=== PATIENT | male | born 1955 | race Caucasian/White ===

== ENCOUNTER 2016-06-19 18:09 | Emergency (ER) | payer BC, MEDICARE ==
--- NOTE | ~2016-06-19 | CT4 ---
[facility] A Service of [facility] & [facility] RADIOLOGY TEXT RESULTS PATIENT: KELI LUNDBERG LOCATION: [facility] : 56 UNIT #: [id number] AGE: [address]: Vanessa Foote MD SEX: M ORDER DR: [id number] [facility] [address] [place], [place] [address] [id number] E MR#: [id number] Acc #: [id number] NAME: KELI LUNDBERG : 1955 SEX: M STUDY DATE/TIME: 06/19/2016 18:48 UNIT: ELIO ROOM: STUDY DESCRIPTION: CT Abd and Pelv Wo Cont Attending Physician: Vanessa Foote M.D. Ordering Physician: Vanessa Foote M.D. Primary Care Physician: Janice Carpio M.D. MEDICAL IMAGING REPORT This report is preliminary unless electronic signature is present EXAM CT of abdomen and pelvis without IV contrast. DATE OF EXAM 06/19/2016 COMPARISON January 28, 2015, as well as CT chest dated January 28, 2015, and February 11, 2013. 2 views of the right femur on June 19, 2016, and 2 views of the right hip dated July 25, 2015. INDICATIONS 61-year-old male with right-sided hip and pelvic pain after falling in the shower today. History of right total hip arthroplasty. TECHNIQUE NOTE: This CT exam was performed with one or more of the following radiation dose reduction techniques: automatic exposure control, adjustment of mA and/or kV according to patient size, and iterative reconstruction. FINDINGS Axial CT imaging of the abdomen and pelvis was performed without IV contrast. Lack of IV contrast limits evaluation of adenopathy, vasculature and viscera. There is interlocking femoral nail and screw in the proximal left femur. The femoral nail is incompletely imaged. No hardware complication is seen on this exam. There is a right total hip arthroplasty. The superior right acetabular screw protrudes into the right pelvis by approximately 9 mm. Detailed evaluation of the bone adjacent to the right total arthroplasty is limited by streak artifact from the implant itself. 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 The right hip arthroplasty appears STS. [facility] A Service of [facility] & [facility] RADIOLOGY TEXT RESULTS PATIENT: KELI LUNDBERG [id number] 57 UNIT #: [id number] AGE: [address]: Vanessa Foote MD SEX: M ORDER DR: garth. There appears to be at least 1 stable defect in inferior aspect of the right acetabulum and the acetabular bone is very thin, not significantly changed from comparison of February 2016. No convincing evidence of an acute fracture. No evidence of dislocation of either hip. There is diffuse osteopenia. There is stable Schmorl node formation at L3 and L4 superiorly. There is posterior disc protrusion noted at L4-L5, which is small. No acute fracture or suspicious osseous lesion. As compared to CT chest of January 28, 2015, there are incompletely imaged apparently new nodular densities in the lateral basilar segment of the right lower lobe. Some of these are incompletely imaged and the largest measures up to 7 mm. These may be infectious or inflammatory. The patient does have emphysema. There are minimal subpleural opacities in the dependent left lower lobe which appear new from comparison study, possibly representing focal subsegmental atelectasis. One of these is somewhat nodular in appearance and cannot be excluded as possibly reflecting a new nodule measuring up to 6 mm. Separate posterior basilar segment left lower lobe somewhat nodular appearing opacity measuring up to 7 mm, also new or increased from comparison of January 2015. Unenhanced liver is unremarkable. There has been prior cholecystectomy. No acute abnormality of the pancreas, spleen or adrenal glands are seen on this noncontrast exam. Kidneys appear within normal limits. No evidence of hydronephrosis or hydroureter. No evidence of renal or ureteral calculus. Pelvis is not well evaluated due to streak artifact from the patient's metallic hip hardware. Urinary bladder appears to be distended. Prostate gland is not well evaluated. No convincing evidence of bowel obstruction. There is a moderate diffuse colonic stool burden. Similarly, the appendix is not well seen given streak artifact in the pelvis. There is suture material in the right inguinal region consistent with prior inguinal hernia repair. No pneumoperitoneum. No convincing evidence of free fluid, although, again evaluation of the pelvis is limited. There is diffuse calcification of the abdominal aorta extending into the iliac arteries. No convincing evidence of adenopathy. IMPRESSION 1. The right total hip arthroplasty is incompletely imaged. The femoral stem is partly excluded from field of view. Otherwise, CT appearance of the right total hip arthroplasty is stable from January 2015. There is acetabular protrusio on the right and there is marked thinning of the bone of the acetabulum on the right which is unchanged from comparison. If no recent orthopedic consultation is performed consider doing so as an outpatient. There is stable questionable small defect in the inferior wall of the right acetabulum of uncertain clinical significance. It is uncertain if this may put the patient at risk for hardware failure. No current evidence of acute hardware failure is seen. 2. Stable protrusion of 1 of the acetabular screws into the right pelvis of approximately 9 mm distance. [facility] A Service of [facility] RADIOLOGY TEXT RESULTS PATIENT: KELI LUNDBERG LOCATION: [facility] : 57 UNIT #: [id number] AGE: [address]: Vanessa Foote MD SEX: M ORDER DR: 3. New nodular opacities in both lung bases, largest of which measures up to 7 mm as compared to January 2015. The patient does have emphysema. These are probably infectious or inflammatory but noncontrast CT chest followup in 3 months is recommended to document stability or resolution. 4. Degenerative changes of the lumbar spine. 5. Prior cholecystectomy. Diffuse calcification of the abdominal aorta. 6. Please note the pelvis is not well evaluated due to streak artifact from the patient's bilateral hip hardware. The appendix is not definitely seen and may be obscured by bowel loops and/or the streak artifact in the pelvis. Dictated by... Ayo Krishnamurthy M.D. THIS IS AN ELECTRONICALLY VERIFIED REPORT Ayo Krishnamurthy M.D. at 06/24/2016 9:48 AM YOVANI/farzana TD: 06/19/2016 22:23 JOB #: [id number] MEDICAL IMAGING REPORT Page 1 of 1 COPY
--- NOTE | ~2016-06-19 | CR94 ---
[facility] A Service of [facility] & [facility] RADIOLOGY TEXT RESULTS PATIENT: KELI LUNDBERG LOCATION: [facility] : 57 UNIT #: [id number] AGE: [address]: Vanessa Foote MD SEX: M ORDER DR: [id number] [facility] [address] [place], [place] [address] [id number] E MR#: [id number] Acc #: [id number] NAME: KELI LUNDBERG : 1955 SEX: M STUDY DATE/TIME: 06/19/2016 18:25 UNIT: ELIO ROOM: STUDY DESCRIPTION: CR Elbow Min 3 Views Rt Attending Physician: Vanessa Foote M.D. Ordering Physician: Vanessa Foote M.D. Primary Care Physician: Janice Carpio M.D. MEDICAL IMAGING REPORT This report is preliminary unless electronic signature is present EXAM Right elbow HISTORY Elbow pain after falling today. TECHNIQUE 3 views the elbow were obtained. FINDINGS AP and lateral examination of the elbow shows satisfactory articulation of the humerus with the proximal radius and ulna. There is no identifiable fracture, dislocation, joint effusion, or radiopaque foreign body in the soft tissues. IMPRESSION Normal elbow. Dictated by... Monroe Gutierrez M.D. THIS IS AN ELECTRONICALLY VERIFIED REPORT Monroe Gutierrez M.D. at 06/20/2016 4:55 PM MEL/rao TD: 06/19/2016 21:28 JOB #: [id number] MEDICAL IMAGING REPORT Page 1 of 1 COPY
--- NOTE | ~2016-06-19 | CR107 ---
[facility] A Service of [facility] & [facility] RADIOLOGY TEXT RESULTS PATIENT: KELI LUNDBERG LOCATION: [facility] : 57 UNIT #: [id number] AGE: [address]: Vanessa Foote MD SEX: M ORDER DR: [id number] [facility] [address] [place], [place] [address] [id number] E MR#: [id number] Acc #: [id number] NAME: KELI LUNDBERG : 1955 SEX: M STUDY DATE/TIME: 06/19/2016 18:27 UNIT: [facility] ROOM: STUDY DESCRIPTION: CR Femur 2 Views Rt Attending Physician: Vanessa Foote M.D. Ordering Physician: Vanessa Foote M.D. Primary Care Physician: Janice Carpio M.D. MEDICAL IMAGING REPORT This report is preliminary unless electronic signature is present EXAM Right femur HISTORY Right-sided leg pain after falling today. TECHNIQUE 4 views of the femur were obtained. FINDINGS Postoperative changes of hip replacement are noted. There is no evidence of acute femoral fracture. No periosteal reactions or foreign bodies are seen. Generalized bony demineralization is noted. IMPRESSION No fracture seen. Dictated by... Monroe Gutierrez M.D. THIS IS AN ELECTRONICALLY VERIFIED REPORT Monroe Gutierrez M.D. at 06/20/2016 4:55 PM MEL/rao TD: 06/19/2016 21:31 JOB #: [id number] MEDICAL IMAGING REPORT Page 1 of 1 COPY
[~2016-06-19 18:09] MED LIST: ALBUTEROL17 GM INH; AMBIEN CR PO; AMBIEN PO; AMBIEN12.5 M1 PO; AMBIEN12.5 MG PO; ASCORBIC ACID500 M2 PO; AUGMENTIN875 MG PO; AVINZA PO; AVINZA30 MG PO; AVINZA60 MG PO; BACTRIM DS TABL1 TAB PO; CERTAGEN PO; CITRACAL + D CA1 TA1 PO; CLONIDINE PO; DESYREL50 MG PO; DIAZEPAM PO; DUONEB 2.5-0.5 M3 ML NEB; DURAGESIC TOP; EFFEXOR-XR150 MG PO; EFFEXOR75 M1 PO; EFFEXOR75 M3 PO; FISH OIL 1,0001 CAP PO; FLEXERIL PO; FORTEO2.4 ML SQ; IBUPROFEN600 MG PO; K-DUR20 ME1 PO; KEFLEX PO; LEVAQUIN750 M1 PO; LEVAQUIN750 MG PO; LISINOPRIL10 MG PO; LYRICA PO; LYRICA200 MG PO; MEDROL DOSE PAK; METHADONE PO; MUCINEX100 MG/BOX; NAPROSYN500 MG PO; NASACORT AQ16.5 GM; NONI; NORVASC PO; OLANZAPINE5 MG PO; OMNICEF; OXYCODONE15 M1 PO; PERCOCET 10/31 UDTA1 PO; PERCOCET 10/3251 TAB PO; PHENERGAN PO; PREDNISONE PO; PROLIA60 MG/1 ML; RECLAST 55 MG/100 M IV; ROBITUSSIN100 MG/51 PO; SEROQUEL50 M1 PO; SUDAFED PO; TRAMADOL HCL50 M1 PO; VALIUM10 MG PO; VICODIN PO; VITAMIN C PO; XANAX2 MG PO; Z-PAK; ZITHROMAX PO; ZYPREXA PO; ZYPREXA2.5 MG PO; [UNRECOGNIZED DRUG - OTHER]
== END 2016-06-19 20:10 | disposition home or self-care (01) ==
LOC: CED 18:09
DX: S70.01XA Contusion of right hip, initial encounter (principal); S50.01XA Contusion of right elbow, initial encounter; J44.9 Chronic obstructive pulmonary disease, unspecified; I10 Essential (primary) hypertension; Z90.49 Acquired absence of other specified parts of digestive tract; W01.0XXA Fall on same level from slipping, tripping and stumbling without subsequent striking against object, initial encounter; Y92.009 Unspecified place in unspecified non-institutional (private) residence as the place of occurrence of the external cause
CPT/HCPCS: 73080; 73552; 74176; 99284

== ENCOUNTER 2016-06-24 16:22 | Emergency (ER) | payer BC, MEDICARE ==
--- NOTE | ~2016-06-24 | EKG ---
PATIENT: CATHERINE LUNDBERG UNIT #: [id number] Ventricular Rate: 79 BPM Atrial Rate: 79 BPM P-R Interval: 124 ms QRS Duration: 84 ms Q-T Interval: 374 ms QTC Calculation(Bezet): 428 ms P [place]: 69 degrees Calculated R [place]: -31 degrees Calculated T [place]: 56 degrees Diagnosis Line: Normal sinus rhythm Diagnosis Line: Left axis deviation Diagnosis Line: Abnormal ECG Diagnosis Line: No previous ECGs available Diagnosis Line: Confirmed by XIOMY RYAN MD ([id number]) on 06/24/2016 Diagnosis Line: 11:40:49 PM INTERPRETING MD: CONNOR SANTOS
[2016-06-24 15:29] LABS: AMPHETAMINE NEG (NEG); BARBITURATES NEG (NEG); BENZODIAZEPINES POS (NEG); COCAINE NEG (NEG); MARIJUANA NEG (NEG); OPIATES NEG (NEG); TRICYCLIC ANTIDEPRESSANTS NEG (NEG); U METHADONE NEG (NEG)
[2016-06-24 15:40] LABS: ACETAMINOPHEN 28 ug/mL; ALBUMIN SERUM 4.1 g/dL (3.5-5.0); ALCOHOL BLOOD 86 mg/dL (0); ALKALINE PHOSPHATASE 139 U/L (32-92); ALT (SGPT) 27 U/L (10-40); AST (SGOT) 28 U/L (10-42); BILIRUBIN,TOTAL 0.6 mg/dL (0.2-2.0); BLOOD UREA NITROGEN 7 mg/dL (9-23); BUN/CREATININE RATIO 11.66; CALCIUM SERUM 8.9 mg/dL (8.4-10.2); CARBON DIOXIDE 28 mmol/L (22-31); CHLORIDE 104 mmol/L (100-111); CREATININE SERUM 0.6 mg/dL (0.6-1.4); GLOM FILT RATE Estimated 109.3 mL/min (>60); GLUCOSE FASTING 91 mg/dL (70-110); POTASSIUM 4.2 mmol/L (3.5-5.1); PROTEIN TOTAL SERUM 7.8 g/dL (6.0-8.3); SALICYLATE <4.0 mg/dL; SODIUM 140 mmol/L (135-145)
[2016-06-24 15:43] LABS: BILIRUBIN, DIRECT <0.1 mg/dL (0.0-0.2); BILIRUBIN,INDIRECT 0.5 mg/dL (0.0-0.9)
[2016-06-24 15:59] LABS: BASOPHIL% 0.2 % (0-2.5); EOSINOPHIL# 0.1 X10e3 (0-0.7); EOSINOPHIL% 1.6 % (0.0-7.0); HEMATOCRIT 37.6 % (38.0-50.0); HEMOGLOBIN 12.1 gm/dL (13.0-16.0); LYMPHOCYTE# 1.5 X10e3 (1.0-3.5); LYMPHOCYTE% 26.9 % (17.0-45.0); MEAN CELL VOLUME 92.9 FL (83-96); MEAN CORPUSCULAR HEMOGLOBIN 29.9 PG (28-34); MEAN CORPUSCULAR HGB CONC 32.2 g/dL (30-36); MEAN PLATELET VOLUME 9.2 FL (6.5-11.5); MONOCYTE# 0.5 X10e3 (0-1.0); MONOCYTE% 9.5 % (3.0-12.0); NEUTROPHIL# 3.5 X10e3 (1.5-7.1); NEUTROPHIL% 61.8 % (40-75); PLATELET COUNT 205 X10e3 (140-420); RED BLOOD COUNT 4.04 X10e (3.90-5.60); RED CELL DISTRIBUTION WIDTH 17.2 % (11.0-15.5); WHITE BLOOD COUNT 5.6 X10e3 (4.0-10.5)
[2016-06-24 16:00] LABS: DIFF IND NO
[2016-06-24 16:37] LABS: URINE SOURCE CLEAN CATCH
[2016-06-24 16:42] LABS: URINE APPEARANCE CLEAR; URINE BILIRUBIN NEG (NEG); URINE BLOOD NEG (NEG); URINE COLOR YELLOW; URINE GLUCOSE NEG (NEG); URINE KETONE NEG (NEG); URINE LEUKOCYTE ESTERASE NEG (NEG); URINE NITRATE NEG (NEG); URINE PROTEIN NEG (NEG); URINE SPECIFIC GRAVITY 1.011 (1.003-1.035); URINE UROBILINOGEN 0.2 MG/DL (NEG)
[2016-06-24 16:44] LABS: CULTURE INDICATED? NO
== END 2016-06-24 17:25 | disposition home or self-care (01) ==
LOC: CED 16:22
PROVIDERS: Emergency Medicine
DX: T40.2X1A Poisoning by other opioids, accidental (unintentional), initial encounter (principal)
CPT/HCPCS: 36415; 51702; 80048; 80076; 80307; 81003; 85025; 93005; 96374; 99283; 99284; G0480; J2310

== ENCOUNTER 2016-07-23 22:12 | Emergency (ER) | payer BC, MEDICARE ==
--- NOTE | ~2016-07-23 | CR132 ---
[facility] A Service of [facility] & [facility] RADIOLOGY TEXT RESULTS PATIENT: KELI LUNDBERG LOCATION: [facility] : 57 UNIT #: [id number] AGE: [address]: Vance Quintana MD SEX: M ORDER DR: [id number] [place] [id number] E MR#: [id number] Acc #: [id number] NAME: KELI LUNDBERG : 1955 SEX: M STUDY DATE/TIME: 07/23/2016 22:23 UNIT: SED ROOM: STUDY DESCRIPTION: CR Forearm 2 View Lt Attending Physician: Vance Quintana M.D. Ordering Physician: Vance Quintana M.D. Primary Care Physician: Janice Carpio M.D. MEDICAL IMAGING REPORT This report is preliminary unless electronic signature is present. EXAM Left forearm, 2 views 07/23/2016 HISTORY Left forearm pain status post fall getting out of a car today. FINDINGS AP and lateral views of the forearm show no evidence of fracture or destructive bone lesion. No periosteal elevation is seen. No radiodense foreign bodies are noted. Adjacent soft tissue structures are normal. IMPRESSION Normal forearm. Dictated by... Freddy Jackson M.D. THIS IS AN ELECTRONICALLY VERIFIED REPORT Freddy Jackson M.D. at 07/24/2016 2:21 PM KRT/sena TD: 07/24/2016 00:12 JOB #: [id number] MEDICAL IMAGING REPORT Page 1 of 1
--- NOTE | ~2016-07-23 | CR107 ---
[facility] A Service of [facility] RADIOLOGY TEXT RESULTS PATIENT: KELI LUNDBERG LOCATION: [facility] : 57 UNIT #: [id number] AGE: [address]: Vance Quintana MD SEX: M ORDER DR: [id number] [address] [address] [id number] E MR#: [id number] Acc #: [id number] NAME: KELI LUNDBERG : 1955 SEX: M STUDY DATE/TIME: 07/23/2016 22:23 UNIT: SED ROOM: STUDY DESCRIPTION: CR Femur 2 Views Rt Attending Physician: Vance Quintana M.D. Ordering Physician: Vance Quintana M.D. Primary Care Physician: Janice Carpio M.D. MEDICAL IMAGING REPORT This report is preliminary unless electronic signature is present. EXAM 2 views of the right femur. DATE 07/23/2016 HISTORY Right femur pain after falling out of a car 2 hours prior to arrival. COMPARISON Right femur radiographs 06/19/2016. FINDINGS Osteopenic changes are present. Surgical changes of total right hip replacement are present. What appear to be 2 abandoned wire fragments are demonstrated within the upper medial right thigh, unchanged from the 06/19/2016 examination. The acetabular protrusio configuration is redemonstrated on the right. No acute right side pelvic ring fracture is identified. The right femur appears intact. The knee joint appears appropriately aligned. IMPRESSION 1. No acute fracture of the right femur. 2. 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 3. Osteopenia. Dictated by... Ayanna Santiago M.D. [facility] A Service of [facility] RADIOLOGY TEXT RESULTS PATIENT: KELI LUNDBERG LOCATION: [facility] : 57 UNIT #: [id number] AGE: [address]: Vance Quintana MD SEX: M ORDER DR: THIS IS AN ELECTRONICALLY VERIFIED REPORT Ayanna Santiago M.D. at 07/24/2016 10:02 PM MAIA/sena TD: 07/24/2016 00:37 JOB #: [id number] MEDICAL IMAGING REPORT Page 1 of 1
--- NOTE | ~2016-07-23 | CR93 ---
[facility] A Service [facility] RADIOLOGY TEXT RESULTS PATIENT: KELI LUNDBERG LOCATION: [facility] : 57 UNIT #: [id number] AGE: [address]: Vance Quintana MD SEX: M ORDER DR: [id number] [place] [id number] E MR#: [id number] Acc #: [id number] NAME: KELI LUNDBERG : 1955 SEX: M STUDY DATE/TIME: 07/23/2016 22:23 UNIT: SED ROOM: STUDY DESCRIPTION: CR Elbow Min 3 Views Lt Attending Physician: Vance Quintana M.D. Ordering Physician: Vance Quintana M.D. Primary Care Physician: Jaince Carpio M.D. MEDICAL IMAGING REPORT This report is preliminary unless electronic signature is present. EXAM 3 views of left elbow. DATE 07/23/2016 HISTORY Left elbow and forearm pain after falling out of a car 2 hours prior to arrival. COMPARISON None. FINDINGS AP and lateral examination of the elbow shows satisfactory articulation of the humerus with the proximal radius and ulna. There is no identifiable fracture, dislocation, joint effusion, or radiopaque foreign body in the soft tissues. IMPRESSION Normal 3 views of the left elbow. Dictated by... Ayanna Santiago M.D. THIS IS AN ELECTRONICALLY VERIFIED REPORT Ayanna Santiago M.D. at 07/24/2016 10:02 PM [facility] TD: 07/24/2016 00:35 JOB #: [id number] [facility] A Service [facility] RADIOLOGY TEXT RESULTS PATIENT: KELI LUNDBERG LOCATION: [facility] : 57 UNIT #: [id number] AGE: [address]: Vance Quintana MD SEX: M ORDER DR: MEDICAL IMAGING REPORT Page 1 of 1
--- NOTE | ~2016-07-23 | CR106 ---
[facility] A Service of [facility] & [facility] RADIOLOGY TEXT RESULTS PATIENT: KELI LUNDBERG LOCATION: [facility] : 57 UNIT #: [id number] AGE: [address]: Vance Quintana MD SEX: M ORDER DR: [id number] [address] [address] [id number] E MR#: [id number] Acc #: [id number] NAME: KELI LUNDBERG : 1955 SEX: M STUDY DATE/TIME: 07/23/2016 22:23 UNIT: SED ROOM: STUDY DESCRIPTION: CR Femur 2 Views Lt Attending Physician: Vance Quintana M.D. Ordering Physician: Vance Quintana M.D. Primary Care Physician: Janice Carpio M.D. MEDICAL IMAGING REPORT This report is preliminary unless electronic signature is present. EXAM Left femur, 4 views, 07/23/2016 HISTORY Left femur pain status post fall getting out of a car today. FINDINGS 4 views of the left femur demonstrate no acute fracture. Intramedullary rox and compression screw is in place within the left femur and left hip, respectively. The bones are normally mineralized. There is no soft tissue abnormality. IMPRESSION No acute abnormality. Dictated by... Freddy Jackson M.D. THIS IS AN ELECTRONICALLY VERIFIED REPORT Freddy Jackson M.D. at 07/24/2016 2:21 PM KRT/sena TD: 07/24/2016 00:13 JOB #: [id number] MEDICAL IMAGING REPORT Page 1 of 1
== END 2016-07-23 23:45 | disposition home or self-care (01) ==
LOC: SED 22:12
DX: S70.11XA Contusion of right thigh, initial encounter (principal); S70.12XA Contusion of left thigh, initial encounter; S50.02XA Contusion of left elbow, initial encounter; F41.9 Anxiety disorder, unspecified; F32.9 Major depressive disorder, single episode, unspecified; I10 Essential (primary) hypertension; F17.210 Nicotine dependence, cigarettes, uncomplicated; Z86.19 Personal history of other infectious and parasitic diseases; W01.0XXA Fall on same level from slipping, tripping and stumbling without subsequent striking against object, initial encounter
CPT/HCPCS: 29260; 73080; 73090; 73552; 99284

== ENCOUNTER 2016-07-31 22:31 | Emergency (ER) | payer BC, MEDICARE ==
--- NOTE | ~2016-07-31 | CT107 ---
[facility] A Service of [facility] & [facility] RADIOLOGY TEXT RESULTS PATIENT: KELI LUNDBERG LOCATION: [facility] : 57 UNIT #: [id number] AGE: [address]: Mariusz Mackay MD SEX: M ORDER DR: [id number] [address] [address] [id number] E MR#: [id number] Acc #: [id number] NAME: KELI LUNDBERG : 1955 SEX: M STUDY DATE/TIME: 07/31/2016 23:33 UNIT: SED ROOM: STUDY DESCRIPTION: CT Pelvis Wo Cont Attending Physician: Mariusz Mackay M.D. Ordering Physician: Mariusz Mackay M.D. Primary Care Physician: Janice Carpio M.D. MEDICAL IMAGING REPORT This report is preliminary unless electronic signature is present. EXAM CT pelvis without contrast HISTORY Tripped over curb yesterday hitting left side of femur and hip history of right hip replacement x3 left femur fracture. Pelvic fracture. TECHNIQUE This CT exam was performed with one or more of the following radiation dose reduction techniques: automatic control, adjustment of mA and/or kV according to patient size, and iterative reconstruction. FINDINGS Axial images form through the pelvis without contrast. Multiplanar reconstructed images reviewed at a workstation. Partially visualized is a intramedullary nail within the proximal left femur with a proximal interlocking hip screw. No fracture or loosening of the instrumentation. Sclerosis is seen in the medial aspect of the left femoral head most likely representing a focus of avascular necrosis. No acute fracture or deformity noted. Generalized osteopenia. 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 Patient is status post a right total hip arthroplasty with apparent revision. Some lucency about the acetabular cup probably normal in this patient with multiple revisions. No convincing evidence of arthroplasty failure. Mild asymmetry of the hip soft tissues probably related to neuromuscular imbalance. Internal pelvic structures unremarkable. IMPRESSION 1. Femoral nail and interlocking screw proximal left femur. No evidence of fracture or loosening. 2. A small focus of suspected avascular necrosis involving the left STS. [facility] A Service of [facility] & [facility] RADIOLOGY TEXT RESULTS PATIENT: KELI LUNDBERG LOCATION: [facility] : 57 UNIT #: [id number] AGE: [address]: Mariusz Mackay MD SEX: M ORDER DR: femoral head. 3. Status post apparent multi revisions of a right total hip arthroplasty. There is mild protrusio of the acetabular cup and some lucency about the acetabular cup though I suspect this is not unexpected in this patient with multiple hip revisions. No convincing evidence of arthroplasty failure. 4. No acute pelvic fracture or soft tissue injury identified. Patient does demonstrate generalized osteopenia. Dictated by... Kyler Buck M.D. THIS IS AN ELECTRONICALLY VERIFIED REPORT Kyler Buck M.D. at 08/01/2016 5:18 AM DOMINIQUE/chris TD: 08/01/2016 03:50 JOB #: [id number] MEDICAL IMAGING REPORT Page 1 of 1
--- NOTE | ~2016-07-31 | CR106 ---
[facility] A Service of [facility] RADIOLOGY TEXT RESULTS PATIENT: KELI LUNDBERG LOCATION: [facility] : 57 UNIT #: [id number] AGE: [address]: Mariusz Mackay MD SEX: M ORDER DR: [id number] [address] [address] [id number] E MR#: [id number] Acc #: [id number] NAME: KELI LUNDBERG : 1955 SEX: M STUDY DATE/TIME: 07/31/2016 23:36 UNIT: SED ROOM: STUDY DESCRIPTION: CR Femur 2 Views Lt Attending Physician: Mariusz Mackay M.D. Ordering Physician: Mariusz Mackay M.D. Primary Care Physician: Janice Carpio M.D. MEDICAL IMAGING REPORT This report is preliminary unless electronic signature is present. EXAM Left femur HISTORY Tripped over curb yesterday hitting left side of evening, left-sided femur and hip. FINDINGS Routine views of the left femur demonstrates a long intramedullary nail extending the length of the femur with the proximal interlocking hip screw and distal interlocking screws. There is a single [place] wire proximal femoral shaft. No evidence of fracture or loosening instrumentation. Minimal fragmentation over the greater trochanter, does not appear acute. Hip joint unremarkable. Atrophy of the soft tissues. IMPRESSION Left femoral nail in place from presumed old fracture which appears well healed as no visible fractures seen. No fracture or loosening of the instrumentation. Dictated by... Kyler Buck M.D. THIS IS AN ELECTRONICALLY VERIFIED REPORT Kyler Buck M.D. at 08/01/2016 5:18 AM DOMINIQUE/carolina TD: 08/01/2016 03:30 JOB #: [id number] [facility] A Service of [facility] RADIOLOGY TEXT RESULTS PATIENT: KELI LUNDBEGR LOCATION: [facility] : 57 UNIT #: [id number] AGE: [address]: Mariusz Mackay MD SEX: M ORDER DR: MEDICAL IMAGING REPORT Page 1 of 1
== END 2016-08-01 01:07 | disposition home or self-care (01) ==
LOC: SED 22:31
DX: S70.01XA Contusion of right hip, initial encounter (principal); S70.12XA Contusion of left thigh, initial encounter; W01.0XXA Fall on same level from slipping, tripping and stumbling without subsequent striking against object, initial encounter; Y92.410 Unspecified street and highway as the place of occurrence of the external cause; F17.200 Nicotine dependence, unspecified, uncomplicated; J44.9 Chronic obstructive pulmonary disease, unspecified; M54.9 Dorsalgia, unspecified; G89.29 Other chronic pain
CPT/HCPCS: 72192; 73552; 99284

== ENCOUNTER 2016-08-02 19:28 | Emergency (ER) | payer BC, MEDICARE ==
--- NOTE | ~2016-08-02 | EKG ---
PATIENT: KELI LUNDBERG UNIT #: [id number] Ventricular Rate: 59 BPM Atrial Rate: 59 BPM P-R Interval: 136 ms QRS Duration: 82 ms Q-T Interval: 422 ms QTC Calculation(Bezet): 417 ms P [place]: 61 degrees Calculated R [place]: -10 degrees Calculated T [place]: 32 degrees Diagnosis Line: Sinus bradycardia Diagnosis Line: Septal infarct , age undetermined Diagnosis Line: Abnormal ECG Diagnosis Line: When compared with ECG of 13-MAY-2016 05:50, Diagnosis Line: Septal infarct is now Present Diagnosis Line: Nonspecific T wave abnormality now evident in Diagnosis Line: Anterior leads Diagnosis Line: Confirmed by XIOMY RYAN MD ([id number]) on 08/04/2016 Diagnosis Line: 5:41:20 AM INTERPRETING MD: CONNOR SANTOS
--- NOTE | ~2016-08-02 | CR71 ---
[facility] A Service of [facility] RADIOLOGY TEXT RESULTS PATIENT: KELI LUNDBERG LOCATION: [facility] : 57 UNIT #: [id number] AGE: [address]: Dwight Crane MD SEX: M ORDER DR: [id number] [facility] [address] [place], [place] [address] [id number] E MR#: [id number] Acc #: [id number] NAME: KELI LUNDBERG : 1955 SEX: M STUDY DATE/TIME: 08/02/2016 21:26 UNIT: ELIO ROOM: STUDY DESCRIPTION: CR Chest Single View Attending Physician: Dwight Crane M.D. Ordering Physician: Dwight Crane M.D. Primary Care Physician: Janice Carpio M.D. MEDICAL IMAGING REPORT This report is preliminary unless electronic signature is present EXAM Chest x-ray portable HISTORY Alcohol. Incoherent. Congestion. History of falls. Recent fall after syncope today. History of cough and pneumonia per patient. COMMENT Single frontal portable view of the chest timed 21:26 08/02/2016 compared to 05/10/2016. Heart size is normal. There is considerable distortion of pulmonary parenchymal architecture consistent with chronic obstructive lung disease. Since prior study, the infiltrate at the left base is essentially resolved. Currently, no acute infiltrate, acute congestive failure or pleural effusion suspected. There is no pneumothorax. IMPRESSION Likely fairly severe chronic obstructive lung disease but at this time there is no acute infiltrate, acute congestive failure, pleural effusion or pneumothorax. Appearance of the chest is improved when compared to 05/10/2016. Dictated by... Kelsey Orta M.D. THIS IS AN ELECTRONICALLY VERIFIED REPORT Kelsey Orta M.D. at 08/03/2016 1:45 PM [facility] A Service of [facility] RADIOLOGY TEXT RESULTS PATIENT: KELI LUNDBERG LOCATION: [facility] : 57 UNIT #: [id number] AGE: [address]: Dwight Crane MD SEX: M ORDER DR: ELENA/marck TD: 08/03/2016 13:10 JOB #: [id number] MEDICAL IMAGING REPORT Page 1 of 1 COPY
--- NOTE | ~2016-08-02 | CT52 ---
[facility] A Service of [facility] RADIOLOGY TEXT RESULTS PATIENT: KELI LUNDBERG LOCATION: [facility] : 57 UNIT #: [id number] AGE: [address]: Dwight Crane MD SEX: M ORDER DR: [id number] [facility] [address] [place], [place] [address] [id number] E MR#: [id number] Acc #: [id number] NAME: KELI LUNDEBRG : 1955 SEX: M STUDY DATE/TIME: 08/02/2016 22:30 UNIT: [facility] ROOM: STUDY DESCRIPTION: CT Cervical Spine Wo Cont Attending Physician: Dwight Crane M.D. Ordering Physician: Dwight Crane M.D. Primary Care Physician: Janice Carpio M.D. MEDICAL IMAGING REPORT This report is preliminary unless electronic signature is present EXAM CT cervical spine without contrast HISTORY Fell today after syncope. Posterior neck pain. TECHNIQUE This CT exam was performed with one or more of the following radiation dose reduction techniques: automatic exposure control, adjustment of mA and/or kV according to patient size, and iterative reconstruction. FINDINGS CT cervical spine without contrast demonstrates exaggerated cervical lordosis. Mild disc space narrowing at C4-C5 and C5-C6. Minimal retrolisthesis of C5 on C6. Mild degenerative facet arthropathy in the lower cervical spine. No bony central canal stenosis or bony outlet foraminal stenosis. Mild emphysema in both lung apices. IMPRESSION 1. No acute findings. 2. No fracture. 3. Exaggeration of the normal cervical lordosis. 4. Mild degenerative and hypertrophic changes at multiple cervical levels. 5. Mild emphysema in the lung apices. Dictated by... Geoff Light M.D. THIS IS AN ELECTRONICALLY VERIFIED REPORT Geoff Light M.D. at 08/03/2016 11:22 PM DFL/to [facility] A Service of [facility] RADIOLOGY TEXT RESULTS PATIENT: KELI LUNDBERG LOCATION: [facility] : 57 UNIT #: [id number] AGE: [address]: Dwight Crane MD SEX: M ORDER DR: TD: 08/03/2016 14:34 JOB #: [id number] MEDICAL IMAGING REPORT Page 1 of 1 COPY
--- NOTE | ~2016-08-02 | CR206 ---
[facility] A Service of [facility] RADIOLOGY TEXT RESULTS PATIENT: KELI LUNDBERG LOCATION: [facility] : 57 UNIT #: [id number] AGE: [address]: Dwight Crane MD SEX: M ORDER DR: [id number] [facility] [address] [place], [place] [address] [id number] E MR#: [id number] Acc #: [id number] NAME: KELI LUNDBERG : 1955 SEX: M STUDY DATE/TIME: 08/02/2016 21:30 UNIT: [facility] ROOM: STUDY DESCRIPTION: CR Pelvis 1 or 2 Views Attending Physician: Dwight Crane M.D. Ordering Physician: Dwight Crane M.D. Primary Care Physician: Janice Carpio M.D. MEDICAL IMAGING REPORT This report is preliminary unless electronic signature is present EXAM Pelvis 1 or 2 views HISTORY Intoxicated and fell. Patient is incoherent. Concern for pelvic trauma clinically. COMMENT 2 frontal films of the pelvis reviewed. The patient has had a right hip arthroplasty and previous left femoral neck and shaft pinning. The entirety of the left femoral rox is not in the field of view extending beyond the upper two-thirds of the left femur and if more information is needed additional images of the left femur would be recommended. The bones are somewhat demineralized. There is medial migration of the acetabular component of the right hip arthroplasty. See the CT of the pelvis from 07/31/2016 for detailed findings with respect to this appearance. Configuration is not changed from the social media editor view from the CT 2 days ago. No acute fracture is suspected. No dislocation. IMPRESSION No acute fracture or dislocation id suspected pelvis. The patient has had a previous right hip arthroplasty and there is medial migration of the right acetabular component. Please refer to the pelvic CT report from 07/31/2016. The appearance on today's plain film and the social media editor view from that CT is not changed. Patient has also had prior left femoral neck pinning and partly seen is a left femoral rox. No acute fracture is currently suspected. Dictated by... Kelsey Orta M.D. THIS IS AN ELECTRONICALLY VERIFIED REPORT [facility] A Service of [facility] RADIOLOGY TEXT RESULTS PATIENT: KELI LUNDBERG LOCATION: [facility] : 57 UNIT #: [id number] AGE: [address]: Dwight Crane MD SEX: M ORDER DR: Kelsey Orta M.D. at 08/03/2016 1:45 PM ELENA/marck TD: 08/03/2016 13:19 JOB #: [id number] MEDICAL IMAGING REPORT Page 1 of 1 COPY
--- NOTE | ~2016-08-02 | CR94 ---
[facility] A Service of [facility] RADIOLOGY TEXT RESULTS PATIENT: KELI LUNDBERG LOCATION: [facility] : 57 UNIT #: [id number] AGE: [address]: Dwight Crane MD SEX: M ORDER DR: [id number] [facility] [address] [place], [place] [address] [id number] E MR#: [id number] Acc #: [id number] NAME: KELI LUNDBERG : 1955 SEX: M STUDY DATE/TIME: 08/02/2016 21:33 UNIT: [facility] ROOM: STUDY DESCRIPTION: CR Elbow Min 3 Views Rt Attending Physician: Dwight Crane M.D. Ordering Physician: Dwight Crane M.D. Primary Care Physician: Janice Carpio M.D. MEDICAL IMAGING REPORT This report is preliminary unless electronic signature is present EXAM Right elbow 08/02/2016 21:33 INDICATION Patient intoxicated and has multiple falls. Patient has elbow pain after fall today. FINDINGS 3 views of the right elbow were obtained. There is no fracture or malalignment. There is no joint effusion. IMPRESSION Negative right elbow. Dictated by... Monroe West Jr., M.D. THIS IS AN ELECTRONICALLY VERIFIED REPORT Monroe West Jr., M.D. at 08/03/2016 9:21 PM IBIS/marck TD: 08/03/2016 13:25 JOB #: [id number] MEDICAL IMAGING REPORT Page 1 of 1 COPY
--- NOTE | ~2016-08-02 | CT71 ---
[facility] A Service of [facility] RADIOLOGY TEXT RESULTS PATIENT: KELI LUNDBERG LOCATION: [facility] : 57 UNIT #: [id number] AGE: [address]: Dwight Crane MD SEX: M ORDER DR: [id number] [facility] [address] [place], [place] [address] [id number] E MR#: [id number] Acc #: [id number] NAME: KELI LUNDBERG : 1955 SEX: M STUDY DATE/TIME: 08/02/2016 22:23 UNIT: [facility] ROOM: STUDY DESCRIPTION: CT Head Wo Contrast Attending Physician: Dwight Crane M.D. Ordering Physician: Dwight Crane M.D. Primary Care Physician: Janice Carpio M.D. MEDICAL IMAGING REPORT This report is preliminary unless electronic signature is present EXAM CT brain without contrast HISTORY Fell and hit head today. Headache. TECHNIQUE This CT exam was performed with one or more of the following radiation dose reduction techniques: automatic exposure control, adjustment of mA and/or kV according to patient size, and iterative reconstruction. FINDINGS CT brain without contrast demonstrates a small chronic infarct in the inferomedial right occipital lobe with focal encephalomalacia, stable compared to 05/10/2016 CT. Minimal chronic ischemic changes in the deep white matter bilaterally. No intracranial hemorrhage, mass or edema. No midline shift or ventricular dilatation. IMPRESSION No acute findings. 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 Minimal chronic ischemic changes in the deep white matter bilaterally. Dictated by... Geoff Light M.D. THIS IS AN ELECTRONICALLY VERIFIED REPORT Geoff Light M.D. at 08/03/2016 2:42 PM DFL/to TD: 08/03/2016 12:22 JOB #: [id number] [facility] A Service of [facility] RADIOLOGY TEXT RESULTS PATIENT: KELI LUNDBERG LOCATION: [facility] : 57 UNIT #: [id number] AGE: [address]: Dwight Crane MD SEX: M ORDER DR: MEDICAL IMAGING REPORT Page 1 of 1 COPY
[2016-08-02 21:28] LABS: BASOPHIL% 0.6 % (0-2.5); EOSINOPHIL# 0.2 X10e3 (0-0.7); EOSINOPHIL% 2.5 % (0.0-7.0); HEMATOCRIT 39.1 % (38.0-50.0); HEMOGLOBIN 12.7 gm/dL (13.0-16.0); LYMPHOCYTE% 25.3 % (17.0-45.0); MEAN CELL VOLUME 90.3 FL (83-96); MEAN CORPUSCULAR HEMOGLOBIN 29.4 PG (28-34); MEAN CORPUSCULAR HGB CONC 32.6 g/dL (30-36); MEAN PLATELET VOLUME 8.8 FL (6.5-11.5); MONOCYTE# 0.7 X10e3 (0-1.0); MONOCYTE% 8.2 % (3.0-12.0); NEUTROPHIL# 5.1 X10e3 (1.5-7.1); NEUTROPHIL% 63.4 % (40-75); PLATELET COUNT 246 X10e3 (140-420); RED BLOOD COUNT 4.33 X10e (3.90-5.60); WHITE BLOOD COUNT 8.1 X10e3 (4.0-10.5)
[2016-08-02 21:29] LABS: DIFF IND NO
[2016-08-02 21:53] LABS: INR 1.1; PARTIAL THROMBOPLASTIN TIME 29.4 SECONDS (23.5-31.3); PROTHROMBIN TIME (PATIENT) 11.2 SECONDS (9.6-11.5)
[2016-08-02 21:56] LABS: ALBUMIN SERUM 4.4 g/dL (3.5-5.0); BILIRUBIN, DIRECT 0.1 mg/dL (0.0-0.2); BILIRUBIN,INDIRECT 0.5 mg/dL (0.0-0.9); BILIRUBIN,TOTAL 0.6 mg/dL (0.2-2.0); BUN/CREATININE RATIO 6.25; CALCIUM SERUM 9.2 mg/dL (8.4-10.2); CREATININE SERUM 0.8 mg/dL (0.6-1.4); GLOM FILT RATE Estimated 97.1 mL/min (>60); PROTEIN TOTAL SERUM 7.6 g/dL (6.0-8.3)
[2016-08-02 22:23] LABS: POC - CKMB 1.7 ng/mL (0.0-7.9); POC - TROPONIN <0.05 ng/mL (<=0.05)
== END 2016-08-03 00:58 | disposition home or self-care (01) ==
LOC: CED 19:28
PROVIDERS: Emergency Medicine
DX: S50.311A Abrasion of right elbow, initial encounter (principal); F41.9 Anxiety disorder, unspecified; J44.9 Chronic obstructive pulmonary disease, unspecified; I25.10 Atherosclerotic heart disease of native coronary artery without angina pectoris; Z79.899 Other long term (current) drug therapy; W19.XXXA Unspecified fall, initial encounter; Y92.9 Unspecified place or not applicable; F10.129 Alcohol abuse with intoxication, unspecified; Y90.9 Presence of alcohol in blood, level not specified; Z79.01 Long term (current) use of anticoagulants; Z23 Encounter for immunization
CPT/HCPCS: 36415; 70450; 71010; 72125; 72170; 73080; 80048; 80076; 82553; 84484; 85025; 85610; 85730; 90471; 90715; 93005; 96365; 99284; G0480; J3411; J3475

== ENCOUNTER 2016-09-19 19:32 | Emergency (ER) | payer BC, MEDICARE ==
--- NOTE | ~2016-09-19 | EKG ---
PATIENT: KELI LUNDBERG UNIT #: [id number] Ventricular Rate: 71 BPM Atrial Rate: 71 BPM P-R Interval: 116 ms QRS Duration: 78 ms Q-T Interval: 400 ms QTC Calculation(Bezet): 434 ms P [place]: 66 degrees Calculated R [place]: 16 degrees Calculated T [place]: 60 degrees Diagnosis Line: Normal sinus rhythm Diagnosis Line: Possible Left atrial enlargement Diagnosis Line: Septal infarct (cited on or before 02-AUG-2016) Diagnosis Line: Abnormal ECG Diagnosis Line: When compared with ECG of 02-AUG-2016 22:00, Diagnosis Line: T wave amplitude has increased in Anterior leads Diagnosis Line: Confirmed by BARB WILKERSON MD ([id number]) on Diagnosis Line: 09/22/2016 11:04:44 AM INTERPRETING MD: RHEA SANTOS
--- NOTE | ~2016-09-19 | CT71 ---
[facility] A Service of [facility] RADIOLOGY TEXT RESULTS PATIENT: KELI LUNDBERG LOCATION: [facility] : 57 UNIT #: [id number] AGE: [address]: Dilshad Lee MD SEX: M ORDER DR: [id number] [facility] [address] [place], [place] [address] [id number] E MR#: [id number] Acc #: [id number] NAME: KELI LUNDBERG : 1955 SEX: M STUDY DATE/TIME: 09/19/2016 21:05 UNIT: [facility] ROOM: STUDY DESCRIPTION: CT Head Wo Contrast Attending Physician: Rafael Lee M.D. Ordering Physician: Ed Doctor [id number] [facility] Primary Care Physician: Janice Carpio M.D. MEDICAL IMAGING REPORT This report is preliminary unless electronic signature is present EXAM CT head, 09/19/2016 HISTORY Altered mental status today, 09/19/2016 and fall with laceration to nose. TECHNIQUE CT head performed skull base through vertex without intravenous contrast. Comparison 08/02/2016. This CT exam was performed with one or more of the following radiation dose reduction techniques: automatic exposure control, adjustment of mA and/or kV according to patient size, and iterative reconstruction. FINDINGS Brainstem unremarkable. Cerebellum and cerebral hemispheres show overall preservation of castro matter - white matter differentiation. Some images degraded by motion artifact. No intracranial hemorrhage. No acute cortical ischemia. Encephalomalacic change posteromedial right temporal and occipital lobes. No change. Consistent with prior vascular insult. Midline structures nondisplaced. Periventricular deep white matter tract probable sequelae of chronic microvascular ischemia. No intra or extraaxial mass effect or abnormal intracranial fluid collection. Ventricles, cisterns and sulci show mild generalized enlargement consistent with generalized atrophy. Intraorbital soft tissues unremarkable. No fracture. The visualized paranasal sinuses and mastoid air cells are clear. IMPRESSION 1. No acute abnormalities seen in the brain. 2. Chronic changes include: Periventricular and deep white matter probable sequelae of chronic microvascular ischemia, [facility] RADIOLOGY TEXT RESULTS PATIENT: KELI [facility]UNDBERG [id number] 57 UNIT #: [id number] AGE: [address]: Dilshad Lee MD SEX: M ORDER DR: atrophy, encephalomalacic change posteromedial right temporal and occipital lobes consistent with remote vascular injury. Not mentioned above, there is also a small subcentimeter chronic lacunar infarct in the inferior right putamen unchanged from prior study. 3. No fracture. 4. Vascular calcifications. Dictated by... Compa Coburn M.D. THIS IS AN ELECTRONICALLY VERIFIED REPORT Compa Coburn M.D. at 09/22/2016 5:51 PM MACY/rao TD: 09/20/2016 12:40 JOB #: [id number] MEDICAL IMAGING REPORT Page 1 of 1 COPY
[2016-09-19 20:28] LABS: URINE SOURCE CLEAN CATCH
[2016-09-19 20:32] LABS: BASOPHIL% 0.4 % (0-2.5); EOSINOPHIL# 0.1 X10e3 (0-0.7); EOSINOPHIL% 1.3 % (0.0-7.0); HEMATOCRIT 37.5 % (38.0-50.0); HEMOGLOBIN 12.1 gm/dL (13.0-16.0); LYMPHOCYTE% 19.3 % (17.0-45.0); MEAN CELL VOLUME 90.5 FL (83-96); MEAN CORPUSCULAR HEMOGLOBIN 29.3 PG (28-34); MEAN CORPUSCULAR HGB CONC 32.3 g/dL (30-36); MEAN PLATELET VOLUME 8.4 FL (6.5-11.5); MONOCYTE# 0.7 X10e3 (0-1.0); MONOCYTE% 7.1 % (3.0-12.0); NEUTROPHIL# 7.4 X10e3 (1.5-7.1); NEUTROPHIL% 71.9 % (40-75); PLATELET COUNT 329 X10e3 (140-420); RED BLOOD COUNT 4.15 X10e (3.90-5.60); RED CELL DISTRIBUTION WIDTH 15.4 % (11.0-15.5); WHITE BLOOD COUNT 10.2 X10e3 (4.0-10.5)
[2016-09-19 20:34] LABS: DIFF IND NO
[2016-09-19 20:36] LABS: URINE APPEARANCE CLEAR; URINE BILIRUBIN NEG (NEG); URINE BLOOD NEG (NEG); URINE COLOR DK YELLOW; URINE GLUCOSE NEG (NEG); URINE KETONE NEG (NEG); URINE LEUKOCYTE ESTERASE NEG (NEG); URINE NITRATE NEG (NEG); URINE PH 5.5 (5-8); URINE PROTEIN 1+ (NEG); URINE SPECIFIC GRAVITY 1.039 (1.003-1.035)
[2016-09-19 20:39] LABS: URINE BACTERIA AUWI NEG (NEGATIVE); URINE SQUAMOUS EPITHELIAL CELL NONE SEEN /[HPF]; UWBCS1 AUWI 0-2 (0-5)
[2016-09-19 20:40] LABS: CULTURE INDICATED? NO
[2016-09-19 20:46] LABS: AMPHETAMINE NEG (NEG); BARBITURATES NEG (NEG); BENZODIAZEPINES POS (NEG); COCAINE NEG (NEG); MARIJUANA NEG (NEG); OPIATES NEG (NEG); TRICYCLIC ANTIDEPRESSANTS NEG (NEG); U METHADONE NEG (NEG)
[2016-09-19 20:55] LABS: ALKALINE PHOSPHATASE 92 U/L (32-92); ALT (SGPT) 16 U/L (10-40); AST (SGOT) 21 U/L (10-42); BILIRUBIN,TOTAL 0.5 mg/dL (0.2-2.0); BLOOD UREA NITROGEN 19 mg/dL (9-23); CALCIUM SERUM 8.6 mg/dL (8.4-10.2); CARBON DIOXIDE 27 mmol/L (22-31); CHLORIDE 106 mmol/L (100-111); CREATININE SERUM 0.5 mg/dL (0.6-1.4); GLOM FILT RATE Estimated 117.8 mL/min (>60); GLUCOSE FASTING 83 mg/dL (70-110); POTASSIUM 3.5 mmol/L (3.5-5.1); PROTEIN TOTAL SERUM 6.8 g/dL (6.0-8.3); SODIUM 139 mmol/L (135-145)
[2016-09-19 20:56] LABS: ALCOHOL BLOOD <5 mg/dL (0); BILIRUBIN, DIRECT <0.1 mg/dL (0.0-0.2); BILIRUBIN,INDIRECT 0.4 mg/dL (0.0-0.9)
== END 2016-09-20 00:15 | disposition home or self-care (01) ==
LOC: CED 19:32
PROVIDERS: Emergency Medicine
DX: F29 Unspecified psychosis not due to a substance or known physiological condition (principal); F41.9 Anxiety disorder, unspecified; F32.9 Major depressive disorder, single episode, unspecified; F17.210 Nicotine dependence, cigarettes, uncomplicated; Z90.49 Acquired absence of other specified parts of digestive tract; Z79.899 Other long term (current) drug therapy
CPT/HCPCS: 36415; 70450; 80048; 80076; 80307; 81003; 82140; 85025; 93005; 99285; G0480

== ENCOUNTER 2016-10-01 22:57 | Emergency (ER) | payer BC, MEDICARE ==
--- NOTE | ~2016-10-01 | EKG ---
PATIENT: KELI LUNDBERG UNIT #: [id number] Ventricular Rate: 70 BPM Atrial Rate: 70 BPM P-R Interval: 136 ms QRS Duration: 90 ms Q-T Interval: 444 ms QTC Calculation(Bezet): 479 ms P [place]: 72 degrees Calculated R [place]: 59 degrees Calculated T [place]: 69 degrees Diagnosis Line: Normal sinus rhythm Diagnosis Line: Normal ECG Diagnosis Line: No previous ECGs available Diagnosis Line: Confirmed by CECELIA DICKEY MD ([id number]) on Diagnosis Line: 10/02/2016 10:42:23 AM INTERPRETING MD: KELI SANTOS
--- NOTE | ~2016-10-01 | CT71 ---
[facility] A Service of [facility] RADIOLOGY TEXT RESULTS PATIENT: KELI LUNDBERG LOCATION: [facility] : 57 UNIT #: [id number] AGE: [address]: Dilshad Flores MD SEX: M ORDER DR: [id number] [facility] [address] [place], [place] [address] [id number] E MR#: [id number] Acc #: [id number] NAME: KELI LUNDBERG : 1955 SEX: M STUDY DATE/TIME: 10/02/2016 0:11 UNIT: [facility] ROOM: STUDY DESCRIPTION: CT Head Wo Contrast Attending Physician: Dilshad Flores M.D. Ordering Physician: Dilshad Flores M.D. Primary Care Physician: Janice Carpio M.D. MEDICAL IMAGING REPORT This report is preliminary unless electronic signature is present EXAM CT scan of the head without contrast INDICATION Acute mental status changes, possible drug overdose, patient is unresponsive beginning yesterday at 5:00 o'clock. COMPARISON 09/19/[address] exam was performed with one or more of the following radiation dose reduction techniques: automatic exposure control, adjustment of mA and/or kV according to patient size, and iterative reconstruction. FINDINGS Unenhanced images were obtained through the brain. There is old ischemic change in the right occipital region involving an area about 2.5 cm in diameter. This is unchanged from the prior study. There are no masses or extraaxial fluid collections or hemorrhage. IMPRESSION Old right occipital lobe infarct, otherwise normal study. Dictated by... Vance Cabrera M.D. THIS IS AN ELECTRONICALLY VERIFIED REPORT Vance Cabrera M.D. at 10/02/2016 5:53 AM KEELY/carolina [facility] A Service [facility] RADIOLOGY TEXT RESULTS PATIENT: KELI LUNDBERG LOCATION: [facility] : 57 UNIT #: [id number] AGE: [address]: Dilshad Flores MD SEX: M ORDER DR: TD: 10/02/2016 02:05 JOB #: [id number] MEDICAL IMAGING REPORT Page 1 of 1 COPY
--- NOTE | ~2016-10-01 | CR72 ---
[facility] A Service of [facility] RADIOLOGY TEXT RESULTS PATIENT: KELI LUNDBERG LOCATION: [facility] : 57 UNIT #: [id number] AGE: [address]: Dilshad Flores MD SEX: M ORDER DR: [id number] [facility] [address] [place], [place] [address] [id number] E MR#: [id number] Acc #: [id number] NAME: KELI LUNDBERG : 1955 SEX: M STUDY DATE/TIME: 10/01/2016 23:34 UNIT: [facility] ROOM: STUDY DESCRIPTION: CR Chest Single View Portable Attending Physician: Dilshad Flores M.D. Ordering Physician: Dilshad Flores M.D. Primary Care Physician: Janice Carpio M.D. MEDICAL IMAGING REPORT This report is preliminary unless electronic signature is present EXAM Portable chest, 10/01/2016 INDICATIONS Shortness of air, drug overdose, confusion starting today. COMPARISON 08/02/2016 FINDINGS A portable view of the chest was obtained. The patient is rotated to the right. Heart size and vascularity are normal and the lungs are clear and the bones are unremarkable. IMPRESSION No active disease. Dictated by... Vance Cabrera M.D. THIS IS AN ELECTRONICALLY VERIFIED REPORT Vance Cabrera M.D. at 10/02/2016 9:52 PM KEELY/carolina TD: 10/02/2016 00:25 JOB #: [id number] MEDICAL IMAGING REPORT Page 1 of 1 COPY
[2016-10-01 23:42] LABS: ARTERIAL BLD GAS O2 SATURATION 95.7 % (90.0-100.0); ARTERIAL BLOOD GAS ALLEN TEST NORMAL; ARTERIAL BLOOD GAS ART SITE RIGHT RADIAL; ARTERIAL BLOOD GAS CARBOXY HB 2.5 %sat (0.0-9.0); ARTERIAL BLOOD GAS DELIVERY NASAL CANNULA; ARTERIAL BLOOD GAS HCO3 26.7 mmol/L; ARTERIAL BLOOD GAS MET HB 0.7 %sat (0.0-2.0); ARTERIAL BLOOD GAS PCO2 53.5 mmHg (35.0-45.0); ARTERIAL BLOOD GAS pH 7.306 (7.350-7.450); ARTERIAL DRAW? YES
[2016-10-02 00:15] LABS: URINE SOURCE CLEAN CATCH
[2016-10-02 00:19] LABS: BASOPHIL% 0.4 % (0-2.5); EOSINOPHIL# 0.2 X10e3 (0-0.7); EOSINOPHIL% 3.8 % (0.0-7.0); HEMATOCRIT 36.1 % (38.0-50.0); HEMOGLOBIN 11.6 gm/dL (13.0-16.0); LYMPHOCYTE# 2.3 X10e3 (1.0-3.5); LYMPHOCYTE% 35.2 % (17.0-45.0); MEAN CELL VOLUME 91.4 FL (83-96); MEAN CORPUSCULAR HEMOGLOBIN 29.4 PG (28-34); MEAN CORPUSCULAR HGB CONC 32.2 g/dL (30-36); MEAN PLATELET VOLUME 9.2 FL (6.5-11.5); MONOCYTE# 0.6 X10e3 (0-1.0); MONOCYTE% 9.5 % (3.0-12.0); NEUTROPHIL# 3.3 X10e3 (1.5-7.1); NEUTROPHIL% 51.1 % (40-75); PLATELET COUNT 238 X10e3 (140-420); RED BLOOD COUNT 3.95 X10e (3.90-5.60); RED CELL DISTRIBUTION WIDTH 16.2 % (11.0-15.5); WHITE BLOOD COUNT 6.6 X10e3 (4.0-10.5)
[2016-10-02 00:20] LABS: URINE APPEARANCE CLEAR; URINE BILIRUBIN NEG (NEG); URINE BLOOD NEG (NEG); URINE COLOR YELLOW; URINE GLUCOSE NEG (NEG); URINE KETONE NEG (NEG); URINE LEUKOCYTE ESTERASE NEG (NEG); URINE NITRATE NEG (NEG); URINE PROTEIN NEG (NEG); URINE SPECIFIC GRAVITY 1.009 (1.003-1.035); URINE UROBILINOGEN 0.2 MG/DL (NEG)
[2016-10-02 00:20] LABS: DIFF IND NO
[2016-10-02 00:24] LABS: CULTURE INDICATED? NO
[2016-10-02 00:34] LABS: PARTIAL THROMBOPLASTIN TIME 29.4 SECONDS (23.5-31.3); PROTHROMBIN TIME (PATIENT) 10.7 SECONDS (10.0-11.7)
[2016-10-02 00:45] LABS: ALBUMIN SERUM 3.7 g/dL (3.5-5.0); ALKALINE PHOSPHATASE 126 U/L (32-92); ALT (SGPT) 23 U/L (10-40); AST (SGOT) 27 U/L (10-42); BILIRUBIN,TOTAL 0.3 mg/dL (0.2-2.0); BLOOD UREA NITROGEN 7 mg/dL (9-23); CALCIUM SERUM 8.5 mg/dL (8.4-10.2); CARBON DIOXIDE 26 mmol/L (22-31); CHLORIDE 107 mmol/L (100-111); CREATININE SERUM 0.5 mg/dL (0.6-1.4); GLOM FILT RATE Estimated 117.8 mL/min (>60); GLUCOSE FASTING 89 mg/dL (70-110); POTASSIUM 3.4 mmol/L (3.5-5.1); SALICYLATE <4.0 mg/dL; SODIUM 142 mmol/L (135-145)
[2016-10-02 00:46] LABS: ACETAMINOPHEN <10 ug/mL; BILIRUBIN, DIRECT <0.1 mg/dL (0.0-0.2); BILIRUBIN,INDIRECT 0.2 mg/dL (0.0-0.9)
[2016-10-02 00:47] LABS: ALCOHOL BLOOD 345 mg/dL (0)
[2016-10-02 02:11] LABS: AMPHETAMINE NEG (NEG); BARBITURATES NEG (NEG); BENZODIAZEPINES POS (NEG); COCAINE NEG (NEG); MARIJUANA NEG (NEG); OPIATES NEG (NEG); TRICYCLIC ANTIDEPRESSANTS NEG (NEG); U METHADONE NEG (NEG)
== END 2016-10-02 05:46 | disposition home or self-care (01) ==
LOC: CED 22:57
PROVIDERS: Emergency Medicine
DX: F10.129 Alcohol abuse with intoxication, unspecified (principal); R40.1 Stupor; J44.9 Chronic obstructive pulmonary disease, unspecified; Z90.49 Acquired absence of other specified parts of digestive tract; Z98.890 Other specified postprocedural states; F17.200 Nicotine dependence, unspecified, uncomplicated; Z79.899 Other long term (current) drug therapy; Y90.8 Blood alcohol level of 240 mg/100 ml or more
CPT/HCPCS: 36600; 51701; 70450; 71010; 80048; 80076; 80307; 81003; 82140; 82803; 82947; 83605; 85025; 85610; 85730; 87040; 93005; 96360; 96361; 99285; G0480